=== PATIENT | female | born 1995 | race Hispanic/Latino ===

== ENCOUNTER 2019-09-26 10:28 | Emergency (ER) | payer MEDICAID | END 2019-09-26 10:46 | disposition home or self-care (01) | LOC: EDH 10:28 | DX: O99.89 Other specified diseases and conditions complicating pregnancy, childbirth and the puerperium (principal); O24.419 Gestational diabetes mellitus in pregnancy, unspecified control; L92.8 Other granulomatous disorders of the skin and subcutaneous tissue; Z3A.32 32 weeks gestation of pregnancy; Z87.891 Personal history of nicotine dependence ==

== ENCOUNTER 2020-11-24 18:20 | Emergency (ER) | payer MEDICAID ==
[2020-11-24] MEDS ORDERED: ACETAMINOPHEN 325 MG TAB ONE (20:02)
[2020-11-24] MEDS ORDERED: TETANUS/DIPHTHERIA TOXOID [ADULT] 0.5 ML VIAL IM ONE (20:52)
== END 2020-11-24 21:29 | disposition home or self-care (01) ==
LOC: EDH 18:20
DX: S16.1XXA Strain of muscle, fascia and tendon at neck level, initial encounter (principal); S60.511A Abrasion of right hand, initial encounter; R51.9 Headache, unspecified; M25.511 Pain in right shoulder; Z72.0 Tobacco use; V49.59XA Passenger injured in collision with other motor vehicles in traffic accident, initial encounter; Y93.89 Activity, other specified; Y92.89 Other specified places as the place of occurrence of the external cause; Y99.8 Other external cause status
CPT/HCPCS: 70450; 72125; 73030; 73130; 81025; 90471; 90714